=== PATIENT | male | born 1960 | race Caucasian/White ===

== ENCOUNTER → 2020-12-11 | Outpatient (CLI) | payer MEDICARE, OTHER ==
--- NOTE | 2020-12-12 08:18 | RAD ---
EXAMINATION: XR SHOULDER_LEFT 2+ VIEWS CLINICAL HISTORY: Chronic left shoulder pain TECHNIQUE: XR SHOULDER_LEFT 2+ VIEWS Number of Images/Views: 3 COMPARISON: None FINDINGS: Mild to moderate glenohumeral joint space narrowing with a small marginal osteophyte along the inferi or humeral head. Acromioclavicular joints suboptimally assessed due to patient positioning, but prese rved joint space is seen on the axillary view. No acute fracture. IMPRESSION: Mild to moderate glenohumeral degenerative changes. Electronically signed by: Bhavin Duarte DO (12/12/2020 8:16 AM) [id number]
== END ==
LOC: RAD 15:48
PROVIDERS: ATTEND Orthopaedic Surgery
DX: M19.012 Primary osteoarthritis, left shoulder (principal)
CPT/HCPCS: 73030

== ENCOUNTER → 2021-04-30 | Outpatient (CLI) | payer MEDICARE, OTHER ==
--- NOTE | 2021-04-30 16:08 | RAD ---
EXAM: Left shoulder, 2 views. HISTORY: Arthroplasty. COMPARISON: None. FINDINGS: 2 views of the left shoulder are obtained. There is a reverse left shoulder arthroplasty in expected vision. There is surrounding soft tissue gas due to recent surgery. There has been no hernandez e in multiple left rib fracture deformities. IMPRESSION: Left shoulder arthroplasty in expected position. Electronically signed by: Roshni Alonso MD (04/30/2021 4:06 PM) [id number]
== END ==
LOC: RAD 15:15
PROVIDERS: ATTEND Orthopaedic Surgery
DX: Z96.612 Presence of left artificial shoulder joint (principal)
CPT/HCPCS: 73030

== ENCOUNTER → 2021-06-04 | Outpatient (CLI) | payer MEDICARE, OTHER ==
--- NOTE | 2021-06-04 15:47 | RAD ---
EXAM: Left shoulder, 3 views. HISTORY: Pain. Arthroplasty. COMPARISON: 04/30/2021 FINDINGS: 3 views of the left shoulder obtained. There is a reverse left shoulder arthroplasty in exp ected position. There are chronic appearing left rib fractures. IMPRESSION: Left shoulder arthroplasty in expected position. Electronically signed by: Roshni Alonso MD (06/04/2021 3:45 PM) [id number]
== END ==
LOC: RAD 15:16
PROVIDERS: ATTEND Orthopaedic Surgery
DX: S22.42XA Multiple fractures of ribs, left side, initial encounter for closed fracture (principal); Z98.890 Other specified postprocedural states; X58.XXXA Exposure to other specified factors, initial encounter; Y93.89 Activity, other specified; Y92.89 Other specified places as the place of occurrence of the external cause; Y99.8 Other external cause status
CPT/HCPCS: 73030

== ENCOUNTER → 2021-07-16 | Outpatient (CLI) | payer MEDICARE, OTHER ==
--- NOTE | 2021-07-16 16:16 | RAD ---
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 Comparison: 06/04/2021 Findings: Osseous mineralization is normal. Postsurgical features from right total shoulder arthroplasty with w ell-seated acetabular and humeral components. No fracture or dislocation identified. Visualized left upper lobe is unremarkable. Soft tissues are within normal limits. Impression: 1. Left reverse shoulder arthroplasty without evidence for complication. Electronically signed by: Ad Tavarez MD (07/16/2021 4:14 PM) [id number]
== END ==
LOC: RAD 15:21
PROVIDERS: ATTEND Orthopaedic Surgery
DX: M25.512 Pain in left shoulder (principal); Z96.612 Presence of left artificial shoulder joint
CPT/HCPCS: 73030